=== PATIENT | male | born 1975 | race Hispanic/Latino ===

== ENCOUNTER 2016-08-14 05:27 | Emergency (ER) | payer OTHER ==
[~2016-08-14] VITALS: Ht 182.9 cm; Wt 90.7 kg
--- NOTE | 2016-08-14 05:35 | ED PSYCHIATRIC COMPLAINT ---
History of Present Illness General Chief Complaint: Psychiatric Related Complaint Stated Complaint: PSYCH EVAL FOR PARANOIA Source: patient Exam Limitations: no limitations Vital Signs & Intake/Output Vital Signs & Intake/Output Vital Signs Date Time Temp Pulse Resp B/P Pulse O2 O2 Flow FiO2 Ox Delivery Rate 08/14 1556 97.6 91 20 134/91 99 Room Air 08/14 1236 97.0 90 22 128/66 08/14 0936 97.8 80 18 125/74 95 Room Air ED Intake and Output 08/15 0000 08/14 1200 Intake Total Output Total Balance Patient 200 lb Weight Triage Nurses Notes Reviewed? yes Onset: Gradual Duration: hour(s): Timing: recent history Severity: moderate Associated Symptoms: "I saw kids in the truck." HPI: 41 yo gentleman in prior good health, brought in by the police for paranoia and visual hallucinations. He shares that, "My car broke down and we called for a tow... I was in the cab of the flat bed and saw several kids... 5 or 6 or so... two white, two black... they were sitting in the cab and on the flat bed... I think they broke into my car because stuff was missing." He notes he has never seen these people before. He did not communicate with them. No one else was able to see these children. He denies prior episodes. He denies etoh or drugs. He denies si/hi (CESAR MALLORY,SAJAN Huizar) Allergies Coded Allergies: Penicillins (WAS TOLD A KID 08/14/16) Reconcile Medications No Known Home Medications (TADEO MALLORY,PRAVEEN) Past History Travel History Traveled to [place] past 21 day No Medical History Any Pertinent Medical History? see below for history Surgical History Surgical History: none Family History Hx Contributory? No (CESAR MALLORY,SAJAN Huizar) Review of Systems Review of Systems Constitutional: Reports: no symptoms. EENTM: Reports: no symptoms. Respiratory: Reports: no symptoms. Cardiovascular: Reports: no symptoms. GI: Reports: no symptoms. Genitourinary: Reports: no symptoms. Musculoskeletal: Reports: no symptoms. Skin: Reports: no symptoms. Neurological/Psychological: Reports: no symptoms. Hematologic/Endocrine: Reports: no symptoms. Immunologic/Allergic: Reports: no symptoms. All Other Systems: Reviewed and Negative (CESAR MALLORY,ASJAN Huizar) Physical Exam Physical Exam General Appearance: well developed/nourished, mild distress Head: atraumatic Eyes: Bilateral: PERRL, EOMI. Ears, Nose, Throat: normal pharynx, normal ENT inspection, hearing grossly normal Neck: normal inspection, supple Respiratory: normal breath sounds Cardiovascular: regular rate/rhythm Gastrointestinal: soft, non-tender Extremities: normal range of motion Neurological/Psychiatric: no motor/sensory deficits, awake, agitated, flat, oriented x 3 Appearance/Memory/Insight: impaired insight Behavoir/Eye Contact/Speech: avoids eye contact, normal speech Thoughts/Hallucinations: visual hallucinations, paranoia Skin: intact, normal color, warm/dry SAD PERSONS Done? patient not suicidal (CESAR MALLORY,SAJAN Huizar) Progress Differential Diagnosis: drug intoxication, paranoia Plan of Care: Orders Procedure Date/time Status Regular Diet 08/14 B Active Continuous Observation Monitor 08/14 1500 Active Continuous Observation Monitor 08/14 1100 Active Continuous Observation Monitor 08/14 0700 Active Continuous Observation Monitor 08/14 0549 Active URINE DRUG SCREEN FOR ER ONLY 08/14 0549 Complete ETHANOL 08/14 0549 Complete COMPREHENSIVE METABOLIC PANEL 08/14 0549 Complete CBC WITHOUT DIFFERENTIAL 08/14 0549 Complete ED CRISIS PSYCH CONSULT 08/14 0549 Active Laboratory Tests 08/14/16 0620: Anion Gap 13, Estimated GFR > 60, BUN/Creatinine Ratio 12.7, Glucose 110 H, Calcium 9.8, Total Bilirubin 2.4 H, AST 23, ALT 43, Alkaline Phosphatase 86, Total Protein 8.4 H, Albumin 4.7, Globulin 3.7, Albumin/Globulin Ratio 1.3, CBC w Diff NO MAN DIFF REQ, RBC 4.77, MCV 79.9 L, MCH 25.7 L, RDW 15.3 H, MPV 7.8 , Gran % 66.0, Lymphocytes % 24.9, Monocytes % 8.0, Eosinophils % 0.8, Basophils % 0.3, Absolute Granulocytes 5.3, Absolute Lymphocytes 2.0, Absolute Monocytes 0.6, Absolute Eosinophils 0.1, Absolute Basophils 0, PUBS MCHC 32.2 L, Serum Alcohol < 10.0 08/14/16 0610: Urine Opiates Screen 1407.00, Methadone Screen < 40, Barbiturate Screen < 60, Ur Phencyclidine Scrn < 6.00, Amphetamines Screen 1450 H, U Benzodiazepines Scrn 709 H, Urine Cocaine Screen < 50, Urine Cannabis Screen < 5.00 08/14/2016 7:20:36 AM Patient signed out to me by Dr. Paz. Pending crisis evaluation and disposition. 16:34 patient cleared by crisis for discharge home. (PRAVEEN PIEDRA MD) Hand-Off Endorsed To: PRAVEEN PIEDRA MD Endorsed Time: 0700 (CESAR MALLORY,SAJAN Huizar) Departure Departure Condition: Stable Clinical Impression Primary Impression: Paranoia Departure Forms: Customer Survey General Discharge Information (CESAR MALLORY,SAJAN Huizar) Departure Time of Disposition: 1634 Disposition: HOME OR SELF CARE Additional Instructions: FOLLOW UP WITH YOUR DOCTOR OUTPATIENT. RETURN NEEDED. Prescriptions: Current Visit Scripts No Known Home Medications (PRAVEEN PIEDRA MD)
[2016-08-14 06:33] LABS: ABSOLUTE BASOPHIL COUNT 0 /CUMM (0.0-0.2); ABSOLUTE EOSINOPHIL COUNT 0.1 /CUMM (0.0-0.7); ABSOLUTE GRANULOCYTE CT 5.3 /CUMM (1.4-6.5); ABSOLUTE MONOCYTE COUNT 0.6 /CUMM (0.10-0.60); BASOPHIL % 0.3 % (0.0-2.0); EOSINOPHIL % 0.8 % (0-5); HEMATOCRIT 38.1 % (42-52); MEAN CORPUSCULAR HGB 25.7 PG (27.0-31.0); MEAN CORPUSCULAR HGB CONC 32.2 G/DL (33.0-37.0); MEAN CORPUSCULAR VOLUME 79.9 FL (80.0-94.0); MEAN PLATELET VOLUME 7.8 FL (7.4-10.4); PLATELET COUNT 308 /CUMM (130-400); RBC DISTRIBUTION WIDTH 15.3 % (11.5-14.5); RED BLOOD CELL CT 4.77 /CUMM (4.70-6.10); WHITE BLOOD CELL COUNT 8.1 /CUMM (4.8-10.8)
--- NOTE | 2016-08-14 15:13 | ED PSYCH CRISIS CONSULTATION ---
Crisis Consult Basic Assessment Date of Consult: 08/14/16 Responsible Person/Accompanied By: SELF Insurance Authorization: Insurance #1: Insurance name: TAHIR BELLO Phone number: Policy number: [id number] Group number: Authorization number: ED Provider: Patient's ED Provider: CESAR MALLORY,MAXWELL Huizar Primary Care Physician: Patient's PCP: PATIENT HAS NO PRIMARY CARE DR PCP's Phone Number: Current Psychiatrist: none Chief Complaint: Psychiatric Related Complaint Patient's Quote: "I don't need to be here." Present Illness: Pt is a 41yo male who was brought in by police on a PEER that states he is delusional, paranoid and hallucinating. Pt explains that he was visiting friend with his girlfriend in [place] last night and his car broke down. He has [employer] come to tow it home. Pt reports that when they were luis it, he saw some people get up on the tow bead and get into his car. When his car was returned to him, pt claims that there was things stolen out of his can and his car was in disarray. Pt called the police and made a police report. Pt explains that after the police left he accidently hit re-dial and called 911 again, but did not mean to and he told the officers that is was an accident, but they still returned to the home and told him that they were going to take him to the ED for an eval, because no one ever broke into his car and he was hallucinating. Pt denies any SI/HI/SH or sx of psychosis. Pt denies any mental health hx or tx. Pt denies any substance abuse, but his utox is positive for amphetamine and benzos. Pt admitted that he sometimes takes his Mom's xanax to help him sleep, but denies that he uses or has ever used any amphetamine. Pt says he has no idea why his utox is positive for amphetamine. This clinician spoke to pt's girlfriend Patricia Martinez who confirmed that she was with pt through the who situation. She says she did not see anyone breaking into pt's car, but verifies that there were several things missing from the car and that is was in disarray. She explained that pt was acting differently as he seemed more anxious and kept looking out the window and looking in the [place] with a flashlight while the police were present. She informs that pt has been sleep deprived lately and she attributed his anxious behavior to that. This clinician informed her that pt's drug screen is positive for amphetamine and benzos. She informed that she is also aware that pt has difficulty with sleep and sometimes takes his Mom's xanax for sleep. She was supervised about the amphetamine and also denied any knowledge that pt has never used amphetamine. She did agree that his behavior last night did seem consistent with amphetamine use as she has never seen him behave like that before. She denied have any concerns for his safety and requested to come pick him up from the ED to take him home. Pt also requesting discharge and declined any referrals for follow-up tx. He was advised to stay away from benzos and amphetamines or any other non prescribed controlled substance. Case reviewed with Dr.. Frye of Psychiatry and he approved discharge. Patient's Address: [address] [place] [address] Other Phone Number: Who Do You Live With? Family Family/Informants Interviewed: girlfriend Allergies - Coded Allergies: Penicillins (WAS TOLD A KID 08/14/16) Current Medications - No Known Home Medications Laboratory Results: Laboratory Tests 08/14/16 0620: Anion Gap 13, Estimated GFR > 60, BUN/Creatinine Ratio 12.7, Glucose 110 H, Calcium 9.8, Total Bilirubin 2.4 H, AST 23, ALT 43, Alkaline Phosphatase 86, Total Protein 8.4 H, Albumin 4.7, Globulin 3.7, Albumin/Globulin Ratio 1.3, CBC w Diff NO MAN DIFF REQ, RBC 4.77, MCV 79.9 L, MCH 25.7 L, RDW 15.3 H, MPV 7.8 , Gran % 66.0, Lymphocytes % 24.9, Monocytes % 8.0, Eosinophils % 0.8, Basophils % 0.3, Absolute Granulocytes 5.3, Absolute Lymphocytes 2.0, Absolute Monocytes 0.6, Absolute Eosinophils 0.1, Absolute Basophils 0, PUBS MCHC 32.2 L, Serum Alcohol < 10.0 08/14/16 0610: Urine Opiates Screen 1407.00, Methadone Screen < 40, Barbiturate Screen < 60, Ur Phencyclidine Scrn < 6.00, Amphetamines Screen 1450 H, U Benzodiazepines Scrn 709 H, Urine Cocaine Screen < 50, Urine Cannabis Screen < 5.00 Past History Past Surgical History Surgical History: 1 Psychosocial History Strengths/Capabilities: articulate, supportive girlfriend, employed working with [employer] Physical Limitations (Interventions): broken foot Psychiatric Treatment History Psych Treatment Psychiatric Treatment No Inpatient Treatment No Outpatient Treatment No Diagnosis by History: denies Substance Use/Abuse History Drug Use/Abuse Substances Used/Abused Yes Substance Used/Abused Other (list in comments) (see present illness) Substance Abuse Treatment Substance Abuse Treatment Past Substance Abuse [place] No Inpatient Treatment No Outpatient Treatment No Current Mental Status Mental Status Orientation: Person, Place, Situation Affect: Anxious Speech: Hyper-verbal Neuro-vegetative: Sleep Disturbance Appearance Appearance- Dress/Hygiene: well groomed, good eye conbtact Behaviors Thought Process: WNL Thought Content: WNL Memory: WNL Insight: Fair SI/HI Risk Assessment Past Suicidal Ideation/Attempts No Current Suicidal Ideation/Att No Past Homicidal Ideation/Att: No Current Homicidal Ideation/Attempts No Degree of Intent: None Risk Factors: substance abuse, male Lethality Ratin (mild) PTSD Checklist PTSD Done? 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
[2016-08-14 15:56] VITALS: BP 134/91
== END 2016-08-14 16:55 ==
LOC: ERH 05:27
PROVIDERS: Pediatrics
DX: F22 Delusional disorders (principal)
CPT/HCPCS: 80307; G0463; G0480